=== PATIENT | male | born 1995 ===

== ENCOUNTER 2020-04-24 16:01 | Emergency (ER) | payer SELFPAY ==
[2020-04-24] MEDS ORDERED: DIPHtheria,PERTUSSIS(ACELL),TETANUS VACCINE/PF 0.5 ML VIAL IM ONE (16:22)
--- NOTE | 2020-04-24 16:22 | Emergency Department Report ---
Blank Doc - Documentation Documentation: 25-year-old male that presents with left forearm lac with a metal corner. Den ies being UTD with tetanus. This initial assessment/diagnostic orders/clinical plan/treatment(s) is/are subject to change based on patient's health status, clinical progression and re- assessment by fellow clinical providers in the ED. Further treatment and workup at subsequent clinical providers discretion. Patient/guardians urged not to elope from the ED as their condition may be serious if not clinically assessed and managed. Initial orders include: 1- Patient sent to [facility] for further evaluation and treatment 2- lac repair w/ tetanus needed
[2020-04-24 16:25] VITALS: BP 139/76
[2020-04-25] MEDS ORDERED: IBUPROFEN 600 MG TAB PO ONE (00:54)
[2020-04-25] MEDS ORDERED: LIDOCAINE (1%) 10 MG/1 ML VIAL 20 ML MDV INFILTRATI ONE (00:54)
[2020-04-25] MEDS ORDERED: DIPHtheria,PERTUSSIS(ACELL),TETANUS VACCINE/PF 0.5 ML VIAL IM ONE (01:53)
--- NOTE | 2020-04-25 02:17 | Emergency Department Report ---
- General Chief Complaint: Laceration/Recheck/Suture Stated Complaint: LFT ARM LAC/PAIN Time Seen by Provider: 04/24/20 16:21 Source: patient Mode of arrival: Ambulatory Limitations: No Limitations - History of Present Illness Initial Comments: Patient is a 25-year-old male with no past medical history who is not up-to-date with his tetanus vaccinations presents to the ED with complaint of painful bleeding left forearm laceration after a sharp gracie metallic object punctured his left forearm about 8 hours ago while working in the yard. Patient states that the bleeding is well controlled at this time but that the pain has been persistent. Patient denies numbness and tingling or weakness of left forearm or left wrist, fall, dizziness, syncope, nausea and vomiting or neck pain. -: Sudden, hour(s) (8) Location: other (left forearm laceration) Extremity Location: Left: Forearm (laceration, pain) Place: home Patient Tetanus UTD: No Context: accidental, sharp object use Associated Symptoms: pain. denies: loss of feeling/numbness, suspect foreign body present, unable to move injured part, weakness followed by dizziness, nausea/vomiting - Related Data Previous Rx's Medication Instructions Recorded Last Taken Type Ibuprofen [Motrin] 800 mg PO Q8HR PRN #24 tablet 04/25/20 Unknown Rx Sulfamethoxazole/Trimethoprim 1 each PO Q12H #20 tablet 04/25/20 Unknown Rx [Bactrim DS TAB] Allergies Allergy/AdvReac Type Severity Reaction Status Date / Time No Known Allergies Allergy Verified 04/24/20 16:25 ED Review of Systems ROS: Stated complaint: LFT ARM LAC/PAIN Other details as noted in HPI Constitutional: denies: chills, fever Eyes: denies: eye pain, eye discharge, vision change ENT: denies: ear pain, throat pain Respiratory: denies: cough, shortness of breath, wheezing Cardiovascular: denies: chest pain, palpitations Endocrine: no symptoms reported Gastrointestinal: denies: abdominal pain, nausea, diarrhea Genitourinary: denies: urgency, dysuria Musculoskeletal: arthralgia (Left forearm pain with bleeding laceration). denies: back pain, joint swelling Skin: other (Bleeding left forearm laceration with pain). denies: rash, lesions Neurological: denies: headache, weakness, paresthesias Psychiatric: denies: anxiety, depression Hematological/Lymphatic: denies: easy bleeding, easy bruising ED Past Medical Hx - Past Medical History Previous Medical History?: No - Surgical History Past Surgical History?: No - Medications Home Medications: Home Medications Medication Instructions Recorded Confirmed Last Taken Type Ibuprofen [Motrin] 800 mg PO Q8HR PRN #24 tablet 04/25/20 Unknown Rx Sulfamethoxazole/Trimethoprim 1 each PO Q12H #20 tablet 04/25/20 Unknown Rx [Bactrim DS TAB] ED Physical Exam - General Limitations: No Limitations General appearance: alert, in no apparent distress - Head Head exam: Present: atraumatic, normocephalic, normal inspection - Eye Eye exam: Present: normal appearance, PERRL, EOMI Pupils: Present: normal accommodation - ENT ENT exam: Present: normal exam, normal orophraynx, mucous membranes moist, TM's normal bilaterally, normal external ear exam - Neck Neck exam: Present: normal inspection, full ROM - Respiratory Respiratory exam: Present: normal lung sounds bilaterally. Absent: respiratory distress, wheezes, rales, rhonchi, chest wall tenderness, decreased breath sounds, prolonged expiratory - Cardiovascular Cardiovascular Exam: Present: regular rate, normal rhythm, normal heart sounds. Absent: systolic murmur, diastolic murmur, rubs, gallop - GI/Abdominal GI/Abdominal exam: Present: soft, normal bowel sounds. Absent: tenderness, guarding, rigid, hyperactive bowel sounds, hypoactive bowel sounds - Extremities Exam Extremities exam: Present: normal inspection, full ROM, tenderness (Palpable left forearm moderate tenderness due to a bleeding 3 cm laceration), normal capillary refill - Back Exam Back exam: Present: normal inspection, full ROM. Absent: tenderness, CVA tenderness (R), CVA tenderness (L), muscle spasm, paraspinal tenderness, vertebral tenderness - Neurological Exam Neurological exam: Present: alert, oriented X3, CN II-XII intact, normal gait, reflexes normal - Psychiatric Psychiatric exam: Present: normal affect, normal mood - Skin Skin exam: Present: warm, dry, intact, normal color, other (Bleeding left forearm 3 cm laceration). Absent: rash ED Course Vital Signs 04/24/20 16:23 Temperature 98.2 F Pulse Rate 85 Respiratory 18 Rate Blood Pressure 139/76 O2 Sat by Pulse 99 Oximetry - Laceration /Wound Repair Left Arm Wound Location: upper extremity (Left forearm laceration) Wound Length (cm): 3 Wound's Depth, Shape: superficial, linear Wound Explored: contaminated Irrigated w/ Saline (ccs): 60 Betadine Prep?: Yes Anesthesia: 1% Lidocaine Volume Anesthetic (ccs): 5 Wound Debrided: extensive Wound Repaired With: sutures Suture Size/Type: 3:0, proline Number of Sutures: 8 Layer Closure?: No Sterile Dressing Applied?: Yes Progress: Patient tolerated the procedure well. The wound was then dressed appropriately after suturing and the patient was discharged home on pain medication and prophylactic antibiotics and was advised to follow-up with his primary care physician in 7 to 10 days for reevaluation or return to the ED immediately if symptoms get worse. Patient was advised return to the ED or to his primary care physician in 12 to 14 days for suture removal. ED Medical Decision Making - Medical Decision Making This is a 25-year-old male with no past medical history who is not up-to-date with his tetanus vaccinations presents to the ED with complaint of painful bleeding left forearm laceration after a sharp gracie metallic object punctured his left forearm about 8 hours ago while working in the yard. Patient states that the bleeding is well controlled at this time but that the pain has been persistent. In the ED, patient is alert and oriented x3 and is not in distress. Patient was treated for pain and also given booster tetanus vaccination. The left forearm bleeding laceration was cleaned thoroughly and bueno tured per protocol. Patient tolerated procedure well. The wound was therefore dressed appropriately and the patient was discharged home on pain medication and prophylactic antibiotics, and was advised to follow-up with his primary care physician in 7 to 10 days for reevaluation or return to the ED immediately if symptoms get worse. Patient was otherwise advised to return to the ED or to his primary care physician in 12 to 14 days for suture removal. - Differential Diagnosis Puncture wound; laceration; abrasions; contusion Critical care attestation.: If time is entered above; I have spent that time in minutes in the direct care of this critically ill patient, excluding procedure time. ED Disposition Clinical Impression: Laceration of left forearm without complication Qualifiers: Encounter type: initial encounter Qualified Code(s): S51.812A - Laceration without foreign body of left forearm, initial encounter Disposition: TO HOME OR SELFCARE Is pt being admited?: No Does the pt Need Aspirin: No Condition: Stable Instructions: Laceration (ED), Suture Care (ED) Additional Instructions: Take medication with food, drink plenty of fluids and follow-up with your primary care physician in 7 to 10 days for reevaluation. Return to the ED immediately if symptoms get worse. Otherwise return to the ED or to your primary care physician in 12 to 14 days for suture removal. Prescriptions: Sulfamethoxazole/Trimethoprim [Bactrim DS TAB] 1 each PO Q12H #20 tablet Ibuprofen [Motrin] 800 mg PO Q8HR PRN #24 tablet PRN Reason: Pain , Severe (7-10) Referrals: [facility] [Provider Group] - 3-5 Days Time of Disposition: 02:20 Print Language: GUATEMALAN
== END 2020-04-25 02:30 | disposition home or self-care (01) ==
LOC: ED 16:01
DX: S51.812A Laceration without foreign body of left forearm, initial encounter (principal); W26.8XXA Contact with other sharp object(s), not elsewhere classified, initial encounter; Y93.89 Activity, other specified; Y92.89 Other specified places as the place of occurrence of the external cause; Y99.8 Other external cause status
CPT/HCPCS: 90471; 90715; 99282

== ENCOUNTER 2020-12-06 22:58 | Observation (INO) | payer OTHER ==
[2020-12-06 23:39] LABS: Hemoglobin 15.1 gm/dl (11.8-15.2); Mean Corpuscular HGB Conc 34 % (32-34); Mean Corpuscular Volume 93 fl (84-94); Platelet Count 230 K/mm3 (140-440); Red Blood Count 4.86 M/mm3 (3.65-5.03); Red Cell Distribution Width 13.4 % (13.2-15.2)
--- NOTE | 2020-12-07 00:02 | XRay Report ---
CHEST 1 VIEW 2331 INDICATION / CLINICAL INFORMATION: hypoxia COMPARISON: None available. FINDINGS: SUPPORT DEVICES: None HEART / MEDIASTINUM: No significant abnormality LUNGS / PLEURA: Mild perihilar interstitial infiltrate/edema is seen which is asymmetric and more pro minent on the left. This extends into the left upper lobe and right base. Though this may represent a symmetric pulmonary edema, bilateral pneumonitis is not excluded. Follow-up is needed as is clinical correlation. No pneumothorax. ADDITIONAL FINDINGS: No significant additional findings. Signer Name: Gio Murray MD Signed: 12/06/2020 11:58 PM Workstation Name: [id number]
[2020-12-07 00:03] LABS: Alanine Aminotransferase 22 units/L (7-56); Albumin 4.5 g/dL (3.9-5); BUN/Creatinine Ratio 13; Blood Urea Nitrogen 15 mg/dL (9-20); Calcium 8.3 mg/dL (8.4-10.2); Hemolysis Index 14
--- NOTE | 2020-12-07 00:08 | Emergency Department Report ---
HPI - General Chief Complaint: Altered Mental Status Time Seen by Provider: 12/06/20 23:17 - HPI HPI: 25-year-old male with no known past medical history brought in by EMS after he was found unresponsive and without spontaneous breathing in the bathtub at home. According to EMS, he was given 2 mg of intranasal Narcan without response. He was given 2 mg of IV Narcan and immediately became responsive and with spontaneous respirations. He was satting in the low 80s on nonrebreather in the ambulance. The patient denies using any opiates and says that he only smoked marijuana. He denies ingestion of any substances. He denies any symptoms or complaints including fever/chills, cough, shortness of breath, chest pain, abdominal pain, nausea/vomiting, or anything else ED Past Medical Hx - Past Medical History Additional medical history: denies - Surgical History Past Surgical History?: No Additional Surgical History: denies - Social History Smoking Status: Current Every Day Smoker Substance Use Type: Marijuana - Medications Home Medications: Home Medications Medication Instructions Recorded Confirmed Last Taken Type Ibuprofen [Motrin] 800 mg PO Q8HR PRN #24 tablet 04/25/20 Unknown Rx Sulfamethoxazole/Trimethoprim 1 each PO Q12H #20 tablet 04/25/20 Unknown Rx [Bactrim DS TAB] ED Review of Systems ROS: Stated complaint: OVERDOSE Other details as noted in HPI Constitutional: denies: chills, fever Eyes: denies: eye pain, vision change ENT: denies: throat pain, epistaxis Respiratory: denies: cough, shortness of breath Cardiovascular: denies: chest pain, palpitations Gastrointestinal: denies: abdominal pain, nausea Genitourinary: denies: dysuria, frequency Musculoskeletal: denies: back pain, myalgia Neurological: denies: headache, numbness Physical Exam - Physical Exam Vital Signs: Vital Signs 12/06/20 12/06/20 12/06/20 23:06 23:07 23:08 Temperature Pulse Rate 110 H 105 H Respiratory 37 H 32 H 40 H Rate Blood Pressure 123/69 O2 Sat by Pulse 75 L 73 L Oximetry 12/06/20 12/06/20 12/06/20 23:10 23:12 23:14 Temperature 96.0 F L Pulse Rate 105 H 102 H 106 H Respiratory 33 H 40 H 24 Rate Blood Pressure 123/69 123/69 111/72 O2 Sat by Pulse 72 L 83 L 100 Oximetry 12/06/20 12/06/20 12/06/20 23:16 23:18 23:20 Temperature Pulse Rate 105 H 105 H 104 H Respiratory 21 21 36 H Rate Blood Pressure 111/72 111/72 111/72 O2 Sat by Pulse 98 98 88 Oximetry 12/06/20 12/06/20 12/06/20 23:22 23:24 23:26 Temperature Pulse Rate 104 H 101 H 105 H Respiratory 24 35 H 22 Rate Blood Pressure 111/72 111/72 111/72 O2 Sat by Pulse 90 85 71 L Oximetry 12/06/20 12/06/20 23:28 23:30 Temperature Pulse Rate 93 H 96 H Respiratory 27 H 28 H Rate Blood Pressure 113/61 113/61 O2 Sat by Pulse 100 Oximetry Physical Exam: GENERAL: Alert and oriented x4. No acute distress HEENT: Normocephalic. Atratumatic. Moist mucous membranes. EYES: Extraocular movements are intact. Pupils are equal round and reactive to light bilaterally NECK: Supple. Trachea is midline. LUNGS: Tachypneic. There are loud rales heard in all lung lala bilaterally. HEART/CARDIOVASCULAR: Regular rate and rhythm. No murmurs or rubs. ABDOMEN: Abdomen is soft and nondistended. Normal bowel sounds. No significant tenderness, guarding or rebound. SKIN: Skin is warm and clammy NEURO: Patient is awake, alert, and oriented. No focal deficits. Normal motor and sensory exam throughout. Normal speech. MUSCULOSKELETAL: Normal ROM throughout. There are no tenderness or deformity. No significant limitation of range of motion. ED Course Vital Signs 12/06/20 12/06/20 12/06/20 23:06 23:07 23:08 Temperature Pulse Rate 110 H 105 H Respiratory 37 H 32 H 40 H Rate Blood Pressure 123/69 O2 Sat by Pulse 75 L 73 L Oximetry 12/06/20 12/06/20 12/06/20 23:10 23:12 23:14 Temperature 96.0 F L Pulse Rate 105 H 102 H 106 H Respiratory 33 H 40 H 24 Rate Blood Pressure 123/69 123/69 111/72 O2 Sat by Pulse 72 L 83 L 100 Oximetry 12/06/20 12/06/20 12/06/20 23:16 23:18 23:20 Temperature Pulse Rate 105 H 105 H 104 H Respiratory 21 21 36 H Rate Blood Pressure 111/72 111/72 111/72 O2 Sat by Pulse 98 98 88 Oximetry 12/06/20 12/06/20 12/06/20 23:22 23:24 23:26 Temperature Pulse Rate 104 H 101 H 105 H Respiratory 24 35 H 22 Rate Blood Pressure 111/72 111/72 111/72 O2 Sat by Pulse 90 85 71 L Oximetry 12/06/20 12/06/20 23:28 23:30 Temperature Pulse Rate 93 H 96 H Respiratory 27 H 28 H Rate Blood Pressure 113/61 113/61 O2 Sat by Pulse 100 Oximetry ED Medical Decision Making - Lab Data Result diagrams: 12/06/20 23:25 12/06/20 23:25 - EKG Data -: EKG Interpreted by Me EKG shows normal: sinus rhythm - EKG Data 12/07/20 01:21 Normal sinus rhythm. Normal axis. Normal intervals. Early repolarization noted. Otherwise no significant ST segment or T wave abnormalities. - Radiology Data CHEST 1 VIEW 2331 INDICATION / CLINICAL INFORMATION: hypoxia COMPARISON: None available. FINDINGS: SUPPORT DEVICES: None HEART / MEDIASTINUM: No significa nt abnormality LUNGS / PLEURA: Mild perihilar interstitial infiltrate/edema is seen which is asymmetric and more prominent on the left. This extends into the left upper lobe and right base. Though this may represent asymmetric pulmonary edema, bilateral pneumonitis is not excluded. Follow-up is needed as is clinical correlation. No pneumothorax. ADDITIONAL FINDINGS: No significant additional findings. Signer Name: Gio Murray MD Signed: 12/06/2020 10:58 PM Workstation Name: [id number] - Medical Decision Making 25-year-old male brought in by EMS after he was found unresponsive and without spontaneous breathing in his bathtub at home. Patient initially did not respond to intranasal Narcan but immediately responded to 2 mg of IV Narcan and became responsive and with spontaneous respirations. On initial assessment, the patient was alert and oriented and speaking in full sentences. He was noted to be satting in the low 80s on nonrebreather. Lung auscultation reveals very loud rales in all lung lala bilaterally. Clinically most consistent with flash pulmonary edema which could be secondary to Narcan administration. When I turned the patient onto his left side, his oxygen saturation improved to 100%. The patient admits to smoking marijuana but denies use of any opiates or any other substances and is unable to explain why he responded to the IV Narcan. We will obtain stat chest x-ray and obtain a full set of labs. We will obtain an ABG and reassess frequently. ABG reveals hypercapnea and hypoxia with pCO2 of 53.8 and pO2 of 51.6. Likely secondary to prolonged hypoventilation and flash pulmonary edema. We will place the patient on BiPAP and continue to monitor closely On repeat assessment at 11:50 PM, the patient is noted to be asleep on BiPAP satting 100%. Labs are notable for leukocytosis of 27.7 and elevated glucose of 322. The remainder of his CBC and chemistry are unremarkable. We will continue to monitor the patient with plan to repeat blood gas in approximately 1 hour. We will give 1 L of IV fluids for hyperglycemia and will run it at approximately 250 mL/h. At 12:12 AM, I was called to the bedside because the patient was reported to be vomiting. BiPAP was removed and the patient was placed on nasal cannula. While vomiting and speaking in full sentences the patient was satting 98-100% on 3L NC. We will therefore discontinue the BiPAP, give 4mg of IV Zofran, and continue to monitor the patient. At 1:10 AM, the patient remains in the room resting comfortably, satting 98-100% on NC. We will therefore attempt to remove supplemental oxygen and continue to monitor the patient's saturations. On repeat assessment again at 1:29 AM, the patient is sitting up in bed satting 100% off of all supplemental oxygen. Although the patient is tremendously improved and remains off supplemental oxygen, given his very high leukocytosis and presentation with hypercapnic hypoxic respiratory failure requiring BiPAP in addition to the finding of elevated glucose of 322, he will be admitted to the hospital for further observation and management. In discussion with the admitting hospitalist we will send blood cultures and give IV Zosyn. All of this was explained to the patient who expressed understanding and agreement with the plan of care. Critical Care Time: Yes Critical care time in (mins) excluding proc time.: 40 Critical care attestation.: If time is entered above; I have spent that time in minutes in the direct care of this critically ill patient, excluding procedure time. Critical care time was spent interpreting arterial blood gases and initiating interventions for hypercapnic hypoxic respiratory failure. ED Disposition Clinical Impression: Hypercapnemia, Hypoxia, Pulmonary edema, Overdose, Hyperglycemia, Leukocytosis Disposition: [id number] OP ADMIT IP TO THIS HOSP Is pt being admited?: Yes Condition: Stable Instructions: Pulmonary Edema (ED) Referrals: JULIANNA PINZON MD [Primary Care Provider] - 3-5 Days
[2020-12-07 00:09] LABS: Bilirubin,Direct < 0.2 mg/dL (0-0.2)
[2020-12-07] MEDS ORDERED: ONDANSETRON 4 MG/2 ML INJ ONE (00:20)
[2020-12-07] MEDS ORDERED: SODIUM CHLORIDE 0.9% 1000 ML 1,000 ML IV ONE (00:46)
[2020-12-07 01:25] LABS: Amphetamine Screen,Urine PRESUMPTIVE NEGATIVE; Benzodiazepines Screen,Urine PRESUMPTIVE NEGATIVE; Cannabinoid Screen,Urine PRESUMPTIVE POSITIVE; Cocaine Screen,Urine PRESUMPTIVE NEGATIVE; Methadone Screen,Urine PRESUMPTIVE NEGATIVE; Opiate Screen,Urine PRESUMPTIVE NEGATIVE
[2020-12-07] MEDS ORDERED: PIPERACIL/TAZOBACTA 4.5/NS 100 4.5 GM/100 ML VIAL IV ONE (01:52)
[2020-12-07] MEDS ORDERED: oxyCODONE /ACETAMINOPHEN 5-325MG TAB PO PRN (02:37)
[2020-12-07] MEDS ORDERED: ALBUTEROL 2.5 MG/3 ML NEBU IH PRN (02:37)
[2020-12-07] MEDS ORDERED: ACETAMINOPHEN 325 MG TAB PO PRN (02:37)
[2020-12-07] MEDS ORDERED: ONDANSETRON 4 MG/2 ML INJ IV PRN (02:37)
[2020-12-07] MEDS ORDERED: NALOXONE 0.4 MG/1 ML INJ IV PRN (02:37)
[2020-12-07] MEDS ORDERED: DEXTROSE 50% IN WATER (25GM) 50 ML SYRINGE IV PRN (02:37)
[2020-12-07] MEDS ORDERED: NICOTINE 14 MG/24 HR PATCH TD PRN (02:42)
[2020-12-07] MEDS ORDERED: METOCLOPRAMIDE 10 MG/2 ML INJ IV ONE (03:08)
[2020-12-07 03:25] LABS: Band Neutrophils # (Manual) 2.5 K/mm3; Total Cells Counted 100
[2020-12-07 03:26] LABS: Platelet Estimate Consistent w Auto; RBC Morphology Normal
--- NOTE | 2020-12-07 03:29 | History and Physical Report ---
History of Present Illness Date of examination: 12/07/20 Date of admission: 12/07/20 01:54 Chief complaint: Unresponsiveness History of present illness: 25-year-old male with history of marijuana abuse who presents [facility] ED via EMS with complaints of unresponsiveness. Of note patient is able to provide limited history. Patient reports smoking marijuana and then going in the bathroom to take a shower. The next thing he recalls is waking up in an ambula nce. EMS was called to patient's home after the patient was found in the bathtub, unresponsive without spontaneous breathing. Upon EMS arrival patient was given 2 mg of intranasal Narcan with no response. He was then given 2 mg of IV Narcan and immediately became responsive with return of spontaneous breathing. However patient had a saturation in the low 80s on room air and he was placed on a nonrebreather mask. On arrival to our facility ABG was performed and patient was placed on BiPAP. Denies illicit drug use, IV drug use, alcohol abuse, prescription drug abuse. Admits to purchasing marijuana from a new supplier, and is not sure if the marijuana was laced with something. Endorses nausea and vomiting Denies history of asthma, shortness of breath, headache, fever, chills, abdomin al pain, chest pain, palpitation, cough, hemoptysis, or recent sick contacts Past History Past Medical History: No medical history, other Past Surgical History: No surgical history Social history: , lives with family, smoking (Marijuana), full code. denies: alcohol abuse, prescription drug abuse, IV drug use Family history: no significant family history Medications and Allergies Allergies Allergy/AdvReac Type Severity Reaction Status Date / Time No Known Allergies Allergy Verified 04/24/20 16:25 Home Medications Medication Instructions Recorded Confirmed Last Taken Type Ibuprofen [Motrin] 800 mg PO Q8HR PRN #24 tablet 04/25/20 Unknown Rx Sulfamethoxazole/Trimethoprim 1 each PO Q12H #20 tablet 04/25/20 Unknown Rx [Bactrim DS TAB] Active Meds: Active Medications Acetaminophen (Acetaminophen 325 Mg Tab) 650 mg PO Q4H PRN PRN Reason: Pain MILD(1-3)/Fever >100.5/MARTINEZ Albuterol (Albuterol 2.5 Mg/3 Ml Nebu) 2.5 mg IH Q3HRT PRN PRN Reason: Shortness Of Breath Dextrose (Dextrose 50% In Water (25gm) 50 Ml Syringe) 50 ml IV Q30MIN PRN; Prot ocol PRN Reason: Hypoglycemia Docusate Sodium (Docusate Sodium 100 Mg Cap) 100 mg PO BID [facility] Famotidine (Famotidine 20 Mg/2 Ml Inj) 20 mg IV BID [facility] Heparin Sodium (Porcine) (Heparin 5,000 Unit/1 Ml Vial) 5,000 unit SUB-Q Q12HR [facility] Sodium Chloride (Nacl 0.9% 1000 Ml) 1,000 mls @ 250 mls/hr IV ONCE ONE Stop: 12/07/20 04:45 Last Admin: 12/07/20 01:05 Dose: 250 mls/hr Documented by: Insulin Human Lispro (Insulin Lispro 100 Unit/Ml) 0 unit SUB-Q ACHS [facility]; Protocol Naloxone HCl (Naloxone 0.4 Mg/1 Ml Inj) 0.1 mg IV Q2MIN PRN PRN Reason: Res Rate </= 8 or 02 SAT < 92% Nicotine (Nicotine 14 Mg/24 Hr Patch) 14 mg TD QDAY PRN PRN Reason: smoking cessation Stop: 12/14/20 02:41 Ondansetron HCl (Ondansetron 4 Mg/2 Ml Inj) 4 mg IV Q6H PRN PRN Reason: Nausea And Vomiting Oxycodone/Acetaminophen (Oxycodone /Acetaminophen 5-325mg Tab) 1 tab PO Q6H PRN PRN Reason: Pain, Moderate (4-6) Sodium Chloride (Sodium Chloride 0.9% 10 Ml Flush Syringe) 10 ml IV BID [facility] Sodium Chloride (Sodium Chloride 0.9% 10 Ml Flush Syringe) 10 ml IV PRN PRN PRN Reason: LINE FLUSH Review of Systems All systems: negative (As noted in HPI) Exam - Physical Exam Narrative exam: Physical exam General appearance: Present: No acute distress, alert and oriented 3, well- developed, well-nourished, adult male - EENT Eyes: Present: PERRL, EOM intact ENT: hearing intact, normal dentition - Neck Neck: Present: supple, normal ROM - Respiratory Respiratory effort: Non-labored Respiratory: Rales throughout - Cardiovascular Heart rate: 92 (bpm) Rhythm: Sinus Heart Sounds: Present: S1 & S2. Absent: rub, click - Extremities Extremities: no ischemia, pulses intact, - Peripheral Assessment Peripheral Pulses: within normal limits - Abdominal General gastrointestinal: soft, non-tender, normal bowel sounds - Integumentary Integumentary: Present: warm, dry - Musculoskeletal Musculoskeletal: Able to move all extremities -Neurological Neurological: CN II-XII intact - Psychiatric Psychiatric: cooperative - Constitutional Vitals: Temp Pulse Resp BP Pulse Ox 96.0 F L 80 15 101/60 93 12/06/20 23:10 12/07/20 01:16 12/07/20 01:16 12/07/20 01:16 12/07/20 01:16 Results - Labs CBC & Chem 7: 12/06/20 23:25 12/06/20 23:25 Labs: Laboratory Last Values WBC 27.7 K/mm3 (4.5-11.0) H 12/06/20 23:25 RBC 4.86 M/mm3 (3.65-5.03) 12/06/20 23:25 Hgb 15.1 gm/dl (11.8-15.2) 12/06/20 23:25 Hct 45.0 % (35.5-45.6) 12/06/20 23:25 MCV 93 fl (84-94) 12/06/20 23:25 MCH 31 pg (28-32) 12/06/20 23:25 MCHC 34 % (32-34) 12/06/20 23:25 RDW 13.4 % (13.2-15.2) 12/06/20 23:25 Plt Count 230 K/mm3 (140-440) 12/06/20 23:25 ABG pH 7.226 (7.320-7.450) L 12/06/20 23:40 POC ABG pCO2 53.8 mmHg (32.0-48.0) H 12/06/20 23:40 POC ABG pO2 51.6 mmHg (83-108) L 12/06/20 23:40 POC ABG HCO3 21.8 12/06/20 23:40 ABG O2 Saturation 82.4 (0-100) 12/06/20 23:40 POC ABG Base Excess -6.4 12/06/20 23:40 ABG Hemoglobin 15.6 (12.0-17.5) 12/06/20 23:40 ABG Oxyhemoglobin 80.6 (94-98) L 12/06/20 23:40 ABG Methemoglobin 0.3 (0.0-1.5) 12/06/20 23:40 ABG Sodium 136.0 mmol/L (136.0-145.0) 12/06/20 23:40 ABG Potassium 3.5 mmol/L (3.40-4.50) 12/06/20 23:40 ABG Chloride 100.0 mmol/L (98-107) 12/06/20 23:40 ABG Glucose 330 mg/dL (65-95) H 12/06/20 23:40 Carboxyhemoglobin 1.9 (0.5-1.5) H 12/06/20 23:40 FiO2 % 40.0 12/06/20 23:40 Sodium 138 mmol/L (137-145) 12/06/20 23:25 Potassium 3.6 mmol/L (3.6-5.0) 12/06/20 23:25 Chloride 98.3 mmol/L (98-107) 12/06/20 23:25 Carbon Dioxide 21 mmol/L (22-30) L 12/06/20 23:25 Anion Gap 22 mmol/L 12/06/20 23:25 BUN 15 mg/dL (9-20) 12/06/20 23:25 Creatinine 1.2 mg/dL (0.8-1.3) 12/06/20 23:25 Estimated GFR > 60 ml/min 12/06/20 23:25 BUN/Creatinine Ratio 13 % 12/06/20 23:25 Glucose 322 mg/dL (75-100) H 12/06/20 23:25 Calcium 8.3 mg/dL (8.4-10.2) L 12/06/20 23:25 Total Bilirubin 0.30 mg/dL (0.1-1.2) 12/06/20 23:25 Direct Bilirubin < 0.2 mg/dL (0-0.2) 12/06/20 23:25 Indirect Bilirubin 0.1 mg/dL 12/06/20 23:25 AST 25 units/L (5-40) 12/06/20 23:25 ALT 22 units/L (7-56) 12/06/20 23:25 Alkaline Phosphatase 63 units/L (35-129) 12/06/20 23:25 Total Protein 6.7 g/dL (6.3-8.2) 12/06/20 23:25 Albumin 4.5 g/dL (3.9-5) 12/06/20 23:25 Albumin/Globulin Ratio 2.0 % 12/06/20 23:25 Arterial Blood Glucose 330 mg/dL (65-95) H 12/06/20 23:40 Arterial Blood Ionized Calcium 4.5 mg/dL (4.6-5.3) L 12/06/20 23:40 Urine Opiates Screen Presumptive negative 12/07/20 00:24 Urine Methadone Screen Presumptive negative 12/07/20 00:24 Ur Barbiturates Screen Presumptive negative 12/07/20 00:24 Ur Phencyclidine Scrn Presumptive negative 12/07/20 00:24 Ur Amphetamines Screen Presumptive negative 12/07/20 00:24 U Benzodiazepines Scrn Presumptive negative 12/07/20 00:24 Urine Cocaine Screen Presumptive negative 12/07/20 00:24 U Marijuana (THC) Screen Presumptive positive 12/07/20 00:24 Drugs of Abuse Note Disclamer 12/07/20 00:24 Plasma/Serum Alcohol < 0.01 % (0-0.07) 12/06/20 23:40 - Diagnostic Impressions Diagnostic Impressions: CXR: FINDINGS: SUPPORT DEVICES: None HEART / MEDIASTINUM: No significant abnormality LUNGS / PLEURA: Mild perihilar interstitial infiltrate/edema is seen which is asymmetric and more prominent on the left. This extends into the left upper lobe and right base. Though this may repre sent asymmetric pulmonary edema, bilateral pneumonitis is not excluded. Follow-up is needed as is clinical correlation. No pneumothorax. ADDITIONAL FINDINGS: No significant additional findings Assessment and Plan Assessment and plan: Acute hypoxic respiratory failure with hypercapnia -No Baseline home oxygen requirements -ABG 7.22/53.8/51.6/21.8; f/u repeat ABG -Currently on supplemental -Monitor saturations -Continue supplemental oxygen wean as tolerated -Albuterol as needed Leukocytosis -WBC on admission 27.7 -CXR Mild perihilar interstitial infiltrate/edema is seen, more prominent in the left -Afebrile -?? Aspiration -Cultures pending, UA pending -Started on empiric IV Zosyn -Continue to monitor CBC Unresponsiveness -Found unresponsive without spontaneous breathing in the bathtub at home -Received 2 mg of intranasal Narcan with no response, followed by 2 mg IV Narcan and was responsive with return of spontaneous breathing -Neurochecks -PT OT eval pending -Initiate fall precautions -Toxicology positive for THC Hyperglycemia -BG 322 on admission -Denies history of diabetes -A1c pending -SSI coverage prn Marijuana abuse -Reports smoking marijuana daily -Counseled for cessation GI & DVT PPX -On Pepcid -On heparin Advance Directives: No VTE prophylaxis?: Chemical, Mechanical Plan of care discussed with patient/family: Yes
[2020-12-07] MEDS ORDERED: INSULIN LISPRO 100 UNIT/ML SUB-Q SCH (07:30)
[2020-12-07] MEDS ORDERED: FAMOTIDINE 20 MG/2 ML INJ IV SCH (10:00)
[2020-12-07] MEDS ORDERED: DOCUSATE SODIUM 100 MG CAP PO SCH (10:00)
[2020-12-07] MEDS ORDERED: HEPARIN 5,000 UNIT/1 ML VIAL SUB-Q SCH (10:00)
--- NOTE | 2020-12-07 10:45 | Discharge Summary ---
Providers - Providers Date of Admission: 12/07/20 01:54 Date of discharge: 12/07/20 Attending physician: JOSE BRYAN MD [facility] Reason for admission: acute encephalopathy Condition: Stable Hospital course: 25-year-old male who presented with acute encephalopathy and loss of consciousness after engaging in smoking marijuana which could have been laced with an unknown drug. Patient was diagnosed with pneumonia/pneumonitis, however patient was satting at room air on the time of discharge. Patient without any respiratory distress, patient without any fevers or chills. Patient stated that he wanted to be discharged home and will follow up with his PCP at his clinic. Acute hypoxic respiratory failure with hypercapnia -No Baseline home oxygen requirements -ABG 7.22/53.8/51.6/21.8; f/u repeat ABG -Currently on supplemental -Monitor saturations -Continue supplemental oxygen wean as tolerated -Albuterol as needed Leukocytosis -WBC on admission 27.7 -CXR Mild perihilar interstitial infiltrate/edema is seen, more prominent in the left -Afebrile -Started on empiric IV Zosyn, switched to oral Levaquin Unresponsiveness -Found unresponsive without spontaneous breathing in the bathtub at home -Received 2 mg of intranasal Narcan with no response, followed by 2 mg IV Narcan and was responsive with return of spontaneous breathing -Toxicology positive for THC Completely resolved, patient without any mental deficiencies Hyperglycemia -BG 322 on admission -A1c 5.1 -SSI coverage prn Marijuana abuse -Reports smoking marijuana daily -Counseled for cessation Disposition: DC-01 TO HOME OR SELFCARE Final Discharge Diagnosis (Prints w/discharge instructions): marijuana abuse. acute encephalopathy. acute respiratory failure with hypoxia. pulmonary edema. aspiration pneumonia Time spent for discharge: 25 min Core Measure Documentation - Palliative Care Palliative Care/ Comfort Measures: Not Applicable - Core Measures Any of the following diagnoses?: none Exam - Constitutional Vitals: Temp Pulse Resp BP Pulse Ox 96.0 F L 55 L 12 96/57 94 12/06/20 23:10 12/07/20 09:10 12/07/20 09:00 12/07/20 09:10 12/07/20 09:10 General appearance: Present: no acute distress - EENT Eyes: Present: PERRL ENT: hearing intact, clear oral mucosa - Neck Neck: Present: supple, normal ROM - Respiratory Respiratory effort: normal Respiratory: bilateral: CTA - Cardiovascular Heart Sounds: Present: S1 & S2. Absent: rub, click - Extremities Extremities: pulses symmetrical, No edema Peripheral Pulses: within normal limits - Abdominal General gastrointestinal: Present: soft, non-tender, non-distended, normal bowel sounds Male genitourinary: Present: normal - Integumentary Integumentary: Present: clear, warm, dry - Musculoskeletal Musculoskeletal: gait normal, strength equal bilaterally - Psychiatric Psychiatric: appropriate mood/affect, intact judgment & insight - Neurologic Neurologic: CNII-XII intact, moves all extremities Plan Activity: no restrictions Diet: regular Follow up with: JULIANNA PINZON MD [Primary Care Provider] - 3-5 Days Prescriptions: levoFLOXacin [Levaquin] 750 mg PO QDAY 10 Days tablet
[2020-12-07 15:30] VITALS: BP 109/68
--- NOTE | 2020-12-10 10:07 | Electrocardiograph Report ---
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
== END 2020-12-07 13:10 | disposition home or self-care (01) ==
LOC: ED 22:58 → IMCU 12-07 01:54
PROVIDERS: ADMIT Hospitalist; ATTEND Family Medicine
DX: J96.02 Acute respiratory failure with hypercapnia (principal); J96.01 Acute respiratory failure with hypoxia; J81.1 Chronic pulmonary edema; D72.829 Elevated white blood cell count, unspecified; E11.65 Type 2 diabetes mellitus with hyperglycemia; F12.10 Cannabis abuse, uncomplicated; F17.210 Nicotine dependence, cigarettes, uncomplicated; Z79.4 Long term (current) use of insulin; Z79.899 Other long term (current) drug therapy
CPT/HCPCS: 36415; 71045; 80048; 80076; 80307; 82805; 82962; 83036; 83880; 85025; 87040; 93005; 96361; 96365; 96372; 96375; 99291; G0378; J1644; J2543; J2765; J7030; 80320; 85007; G0480; J2405